=== PATIENT | female | born 2000 | race Caucasian/White ===

== ENCOUNTER 2019-08-10 13:57 | Outpatient (RCR) | payer OTHER, SELFPAY | END 2019-08-10 23:59 | disposition home or self-care (01) | LOC: ANHAUDIO 13:57 | DX: Z46.1 Encounter for fitting and adjustment of hearing aid (principal) | CPT/HCPCS: 99199 ==

== ENCOUNTER 2020-05-02 08:30 | Outpatient (RCR) | payer OTHER, SELFPAY | END 2020-05-02 23:59 | disposition home or self-care (01) | LOC: ANHAUDIO 08:30 | DX: Z46.1 Encounter for fitting and adjustment of hearing aid (principal) | CPT/HCPCS: 99199 ==

== ENCOUNTER 2020-08-01 09:58 | Outpatient (CLI) | payer OTHER, SELFPAY | END 2020-08-01 09:59 | disposition home or self-care (01) | LOC: ANHAUDIO 09:59 | DX: H91.93 Unspecified hearing loss, bilateral (principal) | CPT/HCPCS: 92557; 92567 ==

== ENCOUNTER 2021-01-24 13:47 | Outpatient (RCR) | payer OTHER, SELFPAY | END 2021-01-24 23:59 | disposition home or self-care (01) | LOC: ANHAUDIO 13:47 | DX: Z46.1 Encounter for fitting and adjustment of hearing aid (principal) | CPT/HCPCS: V5160; V5261; V5264 ==

== ENCOUNTER 2021-01-24 14:00 | Outpatient (RCR) | payer OTHER, SELFPAY | END 2021-01-24 23:59 | disposition home or self-care (01) | LOC: ANHAUDIO 14:00 | DX: Z46.1 Encounter for fitting and adjustment of hearing aid (principal) | CPT/HCPCS: 99199 ==

== ENCOUNTER 2021-10-09 13:00 | Outpatient (RCR) | payer OTHER, SELFPAY | END 2021-10-09 23:59 | disposition home or self-care (01) | LOC: ANHAUDIO 13:00 | DX: Z46.1 Encounter for fitting and adjustment of hearing aid (principal) | CPT/HCPCS: 99199 ==

== ENCOUNTER 2022-03-04 13:49 | Outpatient (RCR) | payer OTHER, SELFPAY | END 2022-03-04 23:59 | disposition home or self-care (01) | LOC: ANHAUDIO 13:49 | DX: Z46.1 Encounter for fitting and adjustment of hearing aid (principal) | CPT/HCPCS: 99199 ==

== ENCOUNTER 2022-09-02 12:56 | Outpatient (RCR) | payer OTHER, SELFPAY | END 2022-09-02 23:59 | disposition home or self-care (01) | LOC: ANHAUDIO 12:56 | DX: Z46.1 Encounter for fitting and adjustment of hearing aid (principal) | CPT/HCPCS: 99199 ==

== ENCOUNTER 2023-02-02 06:29 | Outpatient (RCR) | payer OTHER, SELFPAY | END 2023-02-02 23:59 | disposition home or self-care (01) | LOC: ANHAUDIO 06:29 | DX: Z46.1 Encounter for fitting and adjustment of hearing aid (principal) | CPT/HCPCS: 99199 ==

== ENCOUNTER 2023-06-21 09:57 | Outpatient (CLI) | payer BC, MEDICAID, SELFPAY | END 2023-06-21 09:58 | disposition home or self-care (01) | LOC: ANHAUDIO 09:59 | DX: H90.3 Sensorineural hearing loss, bilateral (principal) | CPT/HCPCS: 92557; 92567 ==

== ENCOUNTER 2023-10-18 13:04 | Outpatient (RCR) | payer BC, MEDICAID, SELFPAY | END 2023-10-18 23:59 | disposition home or self-care (01) | LOC: ANHAUDIO 13:04 | DX: Z46.1 Encounter for fitting and adjustment of hearing aid (principal) | CPT/HCPCS: V5181; V5264 ==